=== PATIENT | female | born 1990 | race Caucasian/White ===

== ENCOUNTER 2017-03-25 12:27 | Inpatient (IN) | payer BC ==
[2017-03-25 13:27] LABS: CHLORIDE,CL 100 mEq/L (98-106); SODIUM,NA 133 mEq/L (136-145)
[2017-03-25] MEDS ORDERED: Magnesium Hydroxide 400 MG/5 ML Susp 30 ML Cup PO PRN (16:02)
[2017-03-25] MEDS ORDERED: Acetaminophen 325 MG Tab PO PRN (16:02)
[2017-03-25] MEDS ORDERED: Doxycycline 100 MG in Sodium Chloride 0.9% 100 ML IV SCH (16:30)
[2017-03-25] MEDS: Sodium Chloride 0.9% 1,000 ML IV SCH (16:43)
[2017-03-25] MEDS ORDERED: Doxycycline 100 MG in Sodium Chloride 0.9% 100 ML IV ONE (16:53)
[2017-03-25] MEDS ORDERED: Ampicillin/Sulbactam Na 3 GM in Sodium Chloride 0.9% 100 ML IV SCH (17:00)
[2017-03-25] MEDS ORDERED: Ampicillin/Sulbactam Na 3 GM in Sodium Chloride 0.9% 100 ML IV ONE (17:00)
[2017-03-25] MEDS ORDERED: fentaNYL 100 MCG/2 ML SDV IVPUSH PRN (19:36)
[2017-03-26] MEDS: Ampicillin/Sulbactam Na 3 GM in Sodium Chloride 0.9% 100 ML IV SCH ×5 (00:06→23:46)
[2017-03-26] MEDS: Sodium Chloride 0.9% 1,000 ML IV SCH (03:27)
--- NOTE | 2017-03-26 07:52 | PCM.PN ---
- General Info Date of Service: 03/26/17 Admission Dx/Problem (Free Text): Pelvic Inflammatory Disease Subjective Update: Patient reports she is feeling much better this morning. She reports she is not having any pelvic or abdominal pain. Did have a spike in temperature up to 102 deg F last evening. She has been taking Tylenol. She is afebrile this morning. She was tachycardia last evening, but heart rate is normal this morning. She has been eating ok. Functional Status: Reports: Pain Controlled, Tolerating Diet, Ambulating, Urinating. Denies: New Symptoms - Review of Systems General: Reports: Fatigue, Chills. Denies: Fever HEENT: Reports: No Symptoms Pulmonary: Reports: No Symptoms Cardiovascular: Reports: No Symptoms Gastrointestinal: Reports: Decreased Appetite. Denies: Constipation, Diarrhea, Nausea, Vomiting Genitourinary: Reports: Other (brown discharge). Denies: Dysuria, Frequency, Urgency Musculoskeletal: Reports: No Symptoms Skin: Reports: No Symptoms Neurological: Reports: No Symptoms. Denies: Confusion, Dizziness, Headache Psychiatric: Reports: No Symptoms - Patient Data Vitals - Most Recent: Last Vital Signs Temp 99.1 F 03/26/17 04:00 Pulse 101 H 03/26/17 04:00 Resp 18 03/26/17 04:00 BP 106/65 03/26/17 04:00 Pulse Ox 99 03/26/17 04:00 Weight - Most Recent: 228 lb 8 oz I&O - Last 24 Hours: Intake & Output 03/25/17 03/26/17 03/26/17 22:59 06:59 14:59 Intake Total 241 759 Balance 241 759 Lab Results Last 24 Hours: Laboratory Results - last 24 hr 03/25/17 03/25/17 03/25/17 Range/Units 12:31 13:07 13:07 WBC 21.5 H* (5.0-10.0) 10^3/uL RBC 3.97 L (4.00-5.50) 10^6/uL Hgb 11.2 L (12.0-16.0) g/dL Hct 33.8 L (37.0-47.0) % MCV 85.1 (82.0-94.0) fL MCH 28.2 (27.0-32.0) pg MCHC 33.1 (33.0-38.0) g/dL RDW Coeff of Mechelle 13.5 (11.0-15.0) % Plt Count 232 (150-400) 10^3/uL Neut % (Auto) (35-85) % Lymph % (Auto) (10-55) % [place] % (Auto) (0-16) % Eos % (Auto) (0-5) % Baso % (Auto) (0-3) % Neut # (Auto) (1.80-7.00) 10^3/uL Lymph # (Auto) (1.00-4.80) 10^3/uL [place] # (Auto) (0.00-0.80) 10^3/uL Eos # (Auto) (0.00-0.45) 10^3/uL Baso # (Auto) 10^3/uL Add Manual Diff Yes Neutrophils % (Manual) 94 H (35-85) % Lymphocytes % (Manual) 5 L (21-55) % Monocytes % (Manual) 1 L (2-12) % Absolute Neutrophils 20.21 H (1.80-7.00) 10^3/uL Lymphocytes # (Manual) 1.08 (1.00-4.80) 10^3/uL Monocytes # (Manual) 0.22 (0.00-0.80) 10^3/uL Sodium 133 L (136-145) mEq/L Potassium 3.7 (3.5-5.0) mEq/L Chloride 100 (98-106) mEq/L Carbon Dioxide 22 (21-32) mmol/L BUN 8 (7-18) mg/dL Creatinine 0.7 (0.6-1.0) mg/dL Est Cr Clr Drug Dosing TNP Estimated GFR (MDRD) > 60 (>=60) mL/min Glucose 94 (75-99) mg/dL Calcium 9.4 (8.4-10.1) mg/dL Total Bilirubin 0.5 (0.0-1.0) mg/dL AST 15 (15-37) U/L ALT 22 (12-78) U/L Alkaline Phosphatase 81 (46-116) U/L C-Reactive Protein 6.4 H (0.2-0.8) mg/dL Total Protein 6.9 (6.4-8.2) g/dL Albumin 3.1 L (3.4-5.0) g/dL Urine Color Yellow (YELLOW) Urine Appearance Clear (CLEAR) Urine pH 7.0 (4.5-8.0) Ur Specific [place] 1.020 (1.003-1.020) Urine Protein Negative (NEGATIVE) mg/dL Urine Glucose (UA) Negative (NEGATIVE) mg/dL Urine Ketones 80 H (NEGATIVE) mg/dL Urine Occult Blood Negative (NEGATIVE) Urine Nitrite Negative (NEGATIVE) Urine Bilirubin Negative (NEGATIVE) Urine Urobilinogen 0.2 (0.2-1.0) EU/dL Ur Leukocyte Esterase Moderate H (NEGATIVE) Urine RBC Not seen (0-5) /HPF Urine WBC 0-5 (0-5) /HPF Ur Squamous Epith Cells Many H (NOT SEEN) /HPF Urine Bacteria Occasional H (NOT SEEN) /HPF 03/26/17 03/26/17 Range/Units 07:00 07:00 WBC 15.1 H (5.0-10.0) 10^3/uL RBC 3.47 L (4.00-5.50) 10^6/uL Hgb 9.8 L (12.0-16.0) g/dL Hct 30.0 L (37.0-47.0) % MCV 86.5 (82.0-94.0) fL MCH 28.2 (27.0-32.0) pg MCHC 32.7 L (33.0-38.0) g/dL RDW Coeff of Mechelle 13.7 (11.0-15.0) % Plt Count 196 (150-400) 10^3/uL Neut % (Auto) 87.2 H (35-85) % Lymph % (Auto) 7.3 L (10-55) % [place] % (Auto) 5.3 (0-16) % Eos % (Auto) 0.1 (0-5) % Baso % (Auto) 0.1 (0-3) % Neut # (Auto) 13.18 H (1.80-7.00) 10^3/uL Lymph # (Auto) 1.11 (1.00-4.80) 10^3/uL [place] # (Auto) 0.80 (0.00-0.80) 10^3/uL Eos # (Auto) 0.01 (0.00-0.45) 10^3/uL Baso # (Auto) 0.01 10^3/uL Add Manual Diff Neutrophils % (Manual) (35-85) % Lymphocytes % (Manual) (21-55) % Monocytes % (Manual) (2-12) % Absolute Neutrophils (1.80-7.00) 10^3/uL Lymphocytes # (Manual) (1.00-4.80) 10^3/uL Monocytes # (Manual) (0.00-0.80) 10^3/uL Sodium (136-145) mEq/L Potassium (3.5-5.0) mEq/L Chloride (98-106) mEq/L Carbon Dioxide (21-32) mmol/L BUN (7-18) mg/dL Creatinine (0.6-1.0) mg/dL Est Cr Clr Drug Dosing Estimated GFR (MDRD) (>=60) mL/min Glucose (75-99) mg/dL Calcium (8.4-10.1) mg/dL Total Bilirubin (0.0-1.0) mg/dL AST (15-37) U/L ALT (12-78) U/L Alkaline Phosphatase (46-116) U/L C-Reactive Protein 12.3 H (0.2-0.8) mg/dL Total Protein (6.4-8.2) g/dL Albumin (3.4-5.0) g/dL Urine Color (YELLOW) Urine Appearance (CLEAR) Urine pH (4.5-8.0) Ur Specific [place] (1.003-1.020) Urine Protein (NEGATIVE) mg/dL Urine Glucose (UA) (NEGATIVE) mg/dL Urine Ketones (NEGATIVE) mg/dL Urine Occult Blood (NEGATIVE) Urine Nitrite (NEGATIVE) Urine Bilirubin (NEGATIVE) Urine Urobilinogen (0.2-1.0) EU/dL Ur Leukocyte Esterase (NEGATIVE) Urine RBC (0-5) /HPF Urine WBC (0-5) /HPF Ur Squamous Epith Cells (NOT SEEN) /HPF Urine Bacteria (NOT SEEN) /HPF Andrea Results Last 24 Hours: Microbiology 03/25/17 14:26 Wet Prep - Final Vagina Med Orders - Current: Current Medications Acetaminophen (Tylenol) 650 mg PO Q4H PRN PRN Reason: Pain (Mild 1-3)/fever Last Admin: 03/25/17 18:59 Dose: 650 mg Fentanyl (Sublimaze) 25 mcg IVPUSH Q6H PRN PRN Reason: Pain (severe 7-10) Last Admin: 03/25/17 19:52 Dose: 25 mcg Sodium Chloride (Normal Saline) 1,000 mls @ 125 mls/hr IV ASDIRECTED [facility] Last Admin: 03/26/17 03:27 Dose: 125 mls/hr Ampicillin Sodium/Sulbactam (Sodium 3 gm/ Sodium Chloride) 100 mls @ 200 mls/ hr IV Q6H [facility] Last Admin: 03/26/17 06:00 Dose: 200 mls/hr Doxycycline Hyclate 100 mg/ (Sodium Chloride) 100 mls @ 100 mls/hr IV Q12H [facility] Magnesium Hydroxide (Milk Of Magnesia) 30 ml PO Q12H PRN PRN Reason: Constipation Non-Form (Cmb#95 Tablet) 1 tab PO DAILY [facility] Discontinued Medications Ampicillin Sodium/Sulbactam (Sodium 3 gm/ Sodium Chloride) 100 mls @ 200 mls/ hr IV Q6H [facility] Last Admin: 03/25/17 16:44 Dose: 200 mls/hr Doxycycline Hyclate 100 mg/ (Sodium Chloride) 100 mls @ 100 mls/hr IV Q12H [facility] Last Admin: 03/25/17 16:44 Dose: 100 mls/hr Ampicillin Sodium/Sulbactam (Sodium 3 gm/ Sodium Chloride) 100 mls @ 200 mls/ hr IV ONETIME ONE Stop: 03/25/17 17:29 Last Admin: 03/25/17 17:09 Dose: Not Given Doxycycline Hyclate 100 mg/ (Sodium Chloride) 100 mls @ 100 mls/hr IV ONETIME ONE Stop: 03/25/17 17:29 Last Admin: 03/25/17 17:09 Dose: Not Given - Exam General: Alert, Oriented, No Acute Distress Neck: Supple Lungs: Clear to Auscultation, Normal Respiratory Effort Cardiovascular: Regular Rate, Regular Rhythm, No Murmurs GI/Abdominal Exam: Normal Bowel Sounds, Soft, Non-Tender, No Organomegaly, No Distention, No Abnormal Bruit, No Mass, Pelvis Stable Back Exam: Normal Inspection, Full Range of Motion. No: CVA Tenderness (L), CVA Tenderness (R) Extremities: Normal Inspection, Normal Range of Motion, Non-Tender, No Pedal Edema, Normal Capillary Refill Skin: Warm, Dry, Intact Neurological: No New Focal Deficit Psy/Mental Status: Alert, Normal Affect, Normal Mood Physical Findings Comments:: FHT 135. - Problem List & Annotations (1) Pelvic inflammatory disease, acute SNOMED Code(s): 959036667 Code(s): N73.0 - ACUTE PARAMETRITIS AND PELVIC CELLULITIS Status: Acute Priority: High Current Visit: Yes (2) Neutrophilic leukocytosis SNOMED Code(s): 608645752 Code(s): D72.9 - DISORDER OF WHITE BLOOD CELLS, UNSPECIFIED Status: Acute Priority: High Current Visit: Yes - Problem List Review Problem List Initiated/Reviewed/Updated: Yes - My Orders Last 24 Hours: My Active Orders 03/25/17 13:07 CULTURE URINE [RM] Routine 03/25/17 14:26 CULTURE GENITAL [RM] Routine 03/25/17 14:54 CHLAMYDIA/GC NUCLEIC ACID AMP [MREF] Routine 03/25/17 16:02 Patient Status [ADT] Routine Oxygen Therapy [RC] .PRN Up ad Raine [RC] .PRN Vital Signs [RC] 0000,0400,0800,1200,1600,2000 Acetaminophen [Tylenol] 650 mg PO Q4H PRN Magnesium Hydroxide [Milk of Magnesia] 30 ml PO Q12H PRN Resuscitation Status Routine 03/25/17 16:15 Sodium Chloride 0.9% [Normal Saline] 1,000 ml IV ASDIRECTED 03/25/17 19:36 fentaNYL [Sublimaze] 25 mcg IVPUSH Q6H PRN 03/25/17 Dinner Regular Diet [DIET] 03/26/17 00:00 Ampicillin/Sulbactam Na [Unasyn] 3 gm Sodium Chloride 0.9% [Normal Saline] 100 ml IV Q6H 03/26/17 08:00 Doxycycline [Vibramycin] 100 mg Sodium Chloride 0.9% [Normal Saline] 100 ml IV Q12H Cmb#95/Iron/FA/DHA [ + Dha Combo Pack] 1 tab PO DAILY 03/27/17 06:00 C-REACTIVE PROTEIN [CHEM] DAILY CBC WITH AUTO DIFF [HEME] DAILY 03/28/17 06:00 C-REACTIVE PROTEIN [CHEM] DAILY CBC WITH AUTO DIFF [HEME] DAILY - Plan Plan:: 03/26/2017 Pain much improved. Denies pain this morning. WBC decreased to 15.1. CRP did increase to 12.3. Preliminary genital culture shows normal renate. Preliminary urine culture negative. Awaiting G/C. Patient has been afebrile and pulse has been normal this morning. Continue IV antibiotics for 1-2 more days. Decrease IVF to 75 mL/hr. Encourage ambulation today. Tylenol as needed for pain.
[2017-03-26] MEDS ORDERED: Sodium Chloride 0.9% 1,000 ML IV SCH (07:53)
[2017-03-26] MEDS ORDERED: [UNRECOGNIZED DRUG - REMARK] PO SCH (08:00)
[2017-03-26] MEDS: Doxycycline 100 MG in Sodium Chloride 0.9% 100 ML IV SCH ×2 (08:08→19:14)
[2017-03-27] MEDS: Ampicillin/Sulbactam Na 3 GM in Sodium Chloride 0.9% 100 ML IV SCH (05:35)
[2017-03-27 07:21] LABS: CHLORIDE,CL 108 mEq/L (98-106); SODIUM,NA 138 mEq/L (136-145)
[2017-03-27] MEDS: Doxycycline 100 MG in Sodium Chloride 0.9% 100 ML IV SCH (07:40)
[2017-03-27] MEDS ORDERED: Azithromycin 250 MG Tab PO ONE (09:19)
--- NOTE | 2017-03-27 15:43 | PCM.DCSUM1 ---
Discharge Summary - Hospital Course Free Text/Narrative:: Patient is a 26 year old 2 para 1 admitted with concerns of cervicitis/ PID. She presented to the clinic to see Pebbles with severe pelvic pain. Is 21 weeks gestation. Had been experiencing pelvic pain for about 3 days prior to presentation with gradual worsening of the pain. had otherwise been uneventful. Had been taking tylenol without any relief of the discomfort. Patient noticing increased burning with urinary and frequency as well as vaginal itching. Patient has not been with any new partners, not concerned about STDs but has noted increased vaginal discharge. No bleeding. heart tones strong, ultrasound done and was normal Labs done, did show elevated WBC at 21.5, CRP elevated at 6.4. UA positive. Culture ordered. Vaginal cultures done, wet prep shows moderate WBCs. Patient did have cervical motion tenderness with exam. Admitted to inpatient services with IV Unasyn and Doxycycline ordered. IV fluids and pain control. - Discharge Data Discharge Date: 03/27/17 Discharge Disposition: Home, Self-Care 01 Condition: Good - Patient Summary/Data Complications: none Hospital Course: Patient has had significant improvement of symptoms. She is no longer experiencing any pain. Voiding without difficulty, no further vaginal discharge. Is afebrile. heart tones strong. WBC has improved from 21.5 to 10.6 today, CRP did spike up to 12 but back down now to 6.2 today. Urine culture negative. Genital culture and STD testing negative. Is ambulating well , good appetite. Contacted Dr. Cuadra about case in regards to negative testing and further plan. Recommended patient take a gram of Zithromax today and discharge home on Flagyl. Is scheduled to see Pebbles next week. - Patient Instructions Diet: Usual Diet as Tolerated Activity: As Tolerated - Discharge Plan Prescriptions/Med Rec: metroNIDAZOLE [Flagyl] 500 mg PO Q12H #14 tab Home Medications: Home Meds Cmb#95/Iron/FA/DHA [ + Dha Combo Pack] 1 tab PO DAILY 03/25/17 [History] metroNIDAZOLE [Flagyl] 500 mg PO Q12H #14 tab 03/27/17 [Rx] Patient Handouts: Pelvic Inflammatory Disease Referrals: Pebbles [place] [employer] [ED Midlevel Provider] - (Keep scheduled appointment with Pebbles next ) - Discharge Summary/Plan Comment DC Time >30 min.: No Discharge Summary/Plan Comment: Discharge home Given 1 gm of Zithromax prior to discharge Start Flagyl 500 mg BID for 7 days Usual cares. - General Info Date of Service: 03/27/17 Admission Dx/Problem (Free Text: Pelvic Inflammatory Disease Functional Status: Reports: Pain Controlled, Tolerating Diet, Ambulating - Review of Systems General: Denies: Fever, Weakness, Fatigue HEENT: Reports: No Symptoms Pulmonary: Denies: Shortness of Breath, Cough, Sputum Cardiovascular: Denies: Chest Pain, Edema, Lightheadedness Gastrointestinal: Denies: Abdominal Pain, Nausea, Vomiting Genitourinary: Denies: Dysuria, Frequency Musculoskeletal: Reports: No Symptoms Skin: Reports: No Symptoms Neurological: Reports: No Symptoms - Patient Data Vitals - Most Recent: Last Vital Signs Temp 97.4 F 03/27/17 07:45 Pulse 94 03/27/17 07:45 Resp 16 03/27/17 07:45 BP 121/75 03/27/17 07:45 Pulse Ox 100 03/27/17 07:45 Weight - Most Recent: 228 lb 8 oz Lab Results - Last 24 hrs: Laboratory Results - last 24 hr 03/27/17 03/27/17 Range/Units 06:45 06:45 WBC 10.6 H (5.0-10.0) 10^3/uL RBC 3.43 L (4.00-5.50) 10^6/uL Hgb 9.6 L (12.0-16.0) g/dL Hct 29.8 L (37.0-47.0) % MCV 86.9 (82.0-94.0) fL MCH 28.0 (27.0-32.0) pg MCHC 32.2 L (33.0-38.0) g/dL RDW Coeff of Mechelle 13.9 (11.0-15.0) % Plt Count 205 (150-400) 10^3/uL Neut % (Auto) 78.8 (35-85) % Lymph % (Auto) 13.9 (10-55) % [place] % (Auto) 6.1 (0-16) % Eos % (Auto) 1.0 (0-5) % Baso % (Auto) 0.2 (0-3) % Neut # (Auto) 8.32 H (1.80-7.00) 10^3/uL Lymph # (Auto) 1.47 (1.00-4.80) 10^3/uL [place] # (Auto) 0.65 (0.00-0.80) 10^3/uL Eos # (Auto) 0.11 (0.00-0.45) 10^3/uL Baso # (Auto) 0.02 10^3/uL Sodium 138 (136-145) mEq/L Potassium 3.8 (3.5-5.0) mEq/L Chloride 108 H (98-106) mEq/L Carbon Dioxide 22 (21-32) mmol/L BUN 8 (7-18) mg/dL Creatinine 0.5 L (0.6-1.0) mg/dL Est Cr Clr Drug Dosing 170.49 mL/min Estimated GFR (MDRD) > 60 (>=60) mL/min Glucose 85 (75-99) mg/dL Calcium 8.1 L (8.4-10.1) mg/dL C-Reactive Protein 6.2 H (0.2-0.8) mg/dL ZENIA Results - Last 24 hrs: Microbiology 03/25/17 14:26 Genital Culture - Final Vagina 03/25/17 13:07 Urine Culture - Final Urine, Voided 03/25/17 14:54 Chlamydia trachomatis (GEORGINA) - Final Urine, Clean Catch GC Nucleic Acid Testing - Final Med Orders - Current: Current Medications Discontinued Medications Acetaminophen (Tylenol) 650 mg PO Q4H PRN PRN Reason: Pain (Mild 1-3)/fever Last Admin: 03/25/17 18:59 Dose: 650 mg Azithromycin (Zithromax) 1,000 mg PO ONETIME ONE Stop: 03/27/17 09:20 Last Admin: 03/27/17 09:39 Dose: 1,000 mg Fentanyl (Sublimaze) 25 mcg IVPUSH Q6H PRN PRN Reason: Pain (severe 7-10) Last Admin: 03/25/17 19:52 Dose: 25 mcg Sodium Chloride (Normal Saline) 1,000 mls @ 125 mls/hr IV ASDIRECTED [facility] Last Infusion: 03/26/17 08:10 Dose: 75 mls/hr Ampicillin Sodium/Sulbactam (Sodium 3 gm/ Sodium Chloride) 100 mls @ 200 mls/ hr IV Q6H [facility] Last Admin: 03/25/17 16:44 Dose: 200 mls/hr Doxycycline Hyclate 100 mg/ (Sodium Chloride) 100 mls @ 100 mls/hr IV Q12H [facility] Last Admin: 03/25/17 16:44 Dose: 100 mls/hr Ampicillin Sodium/Sulbactam (Sodium 3 gm/ Sodium Chloride) 100 mls @ 200 mls/ hr IV ONETIME ONE Stop: 03/25/17 17:29 Last Admin: 03/25/17 17:09 Dose: Not Given Doxycycline Hyclate 100 mg/ (Sodium Chloride) 100 mls @ 100 mls/hr IV ONETIME ONE Stop: 03/25/17 17:29 Last Admin: 03/25/17 17:09 Dose: Not Given Ampicillin Sodium/Sulbactam (Sodium 3 gm/ Sodium Chloride) 100 mls @ 200 mls/ hr IV Q6H [facility] Last Admin: 03/27/17 05:35 Dose: 200 mls/hr Doxycycline Hyclate 100 mg/ (Sodium Chloride) 100 mls @ 100 mls/hr IV Q12H [facility] Last Admin: 03/27/17 07:40 Dose: 100 mls/hr Sodium Chloride (Normal Saline) 1,000 mls @ 75 mls/hr IV ASDIRECTED [facility] Last Admin: 03/26/17 16:42 Dose: 75 mls/hr Magnesium Hydroxide (Milk Of Magnesia) 30 ml PO Q12H PRN PRN Reason: Constipation Non-Form (Cmb#95 Tablet) 1 tab PO DAILY [facility] - Exam General: Reports: Alert, Oriented HEENT: Reports: Mucous Membr. Moist/[place] Neck: Reports: Supple Lungs: Reports: Clear to Auscultation, Normal Respiratory Effort Cardiovascular: Reports: Regular Rate, Regular Rhythm GI/Abdominal Exam: Normal Bowel Sounds, Soft, Other (gravid, nontender; heart tones strong) Extremities: Normal Inspection, No Pedal Edema Skin: Reports: Warm, Dry Neurological: Reports: No New Focal Deficit *Q Meaningful Use (DIS) - VTE *Q VTE Criteria *Q: - Stroke *Q Stroke Criteria *Q: - AMI *Q AMI Criteria *Q:
== END 2017-03-27 09:45 | disposition home or self-care (01) | DRG 566 ==
LOC: CC.MS 12:27 → CC.FCMC 12:27 → UNDOADMIN 15:44 → CC.MS 15:44
PROVIDERS: ADMIT Nurse Practitioner Family; ATTEND Family Medicine
DX: O23.42 Unspecified infection of urinary tract in pregnancy, second trimester (principal); Z3A.21 21 weeks gestation of pregnancy
CPT/HCPCS: 36415; 76816; 80048; 80053; 81001; 85025; 86140; 87070; 87086; 87210; 87491; 87591; A9270-GY; J0295; J3010; J7030; J7050